=== PATIENT | male | born 1990 | race Two or more races ===

== ENCOUNTER → 2021-02-05 13:40 | Outpatient (BNVA) | payer OTHER, SELFPAY | PROVIDERS: Visit Provider Internal Medicine | DX: S67.193A Crushing injury of left middle finger, initial encounter (principal); S60.132A Contusion of left middle finger with damage to nail, initial encounter; X58.XXXA Exposure to other specified factors, initial encounter; Z23 Encounter for immunization | CPT/HCPCS: 11740; 73140; 99203 ==

== ENCOUNTER → 2021-02-09 12:46 | Outpatient (BNVA) | payer OTHER, SELFPAY | PROVIDERS: Visit Provider Physician Assistant | DX: S67.193A Crushing injury of left middle finger, initial encounter (principal); S60.132A Contusion of left middle finger with damage to nail, initial encounter; W23.0XXA Caught, crushed, jammed, or pinched between moving objects, initial encounter | CPT/HCPCS: 99213 ==